=== PATIENT | female | born 1970 | race African-American/Black ===

== ENCOUNTER 2017-03-10 17:59 | Emergency (ER) | payer MEDICAID ==
[~2017-03-10] VITALS: Ht 177.8 cm; Wt 63.5 kg
[~2017-03-10 17:59] MED LIST: BENTYL10 MG ORAL; BUSPAR10 MG ORAL; CIPRO500 MG PO; FAMOTIDINE20 MG ORAL; HYDROXYZINE HCL25 M1 PO; KEFLEX500 MG ORAL; MOTRIN100 MG/51 PO; NKM; NORCO 5-325 TA1 EACH ORAL; OMEPRAZOLE40 M1 ORAL; PROMETHAZINE HC25 M1 ORAL; PROPRANOLOL HCL40 MG ORAL; RANITIDINE HCL150 MG ORAL; REGLAN10 MG ORAL; REGLAN10 MG PO; REMERON30 MG ORAL; SERTRALINE HCL100 MG PO; SUCRALFATE1 GM PO; TYLENOL EXTRA500 MG ORAL; ZEGERID 20 MG1 EAC1 PO; ZOFRAN4 M3 ORAL
[2017-03-10] MEDS ORDERED: Morphine Sulfate 4mg/ml Inj IVP ONE (18:15)
[2017-03-10] MEDS ORDERED: DiphenhydrAMINE 50mg/ml Inj IVP ONE (18:15)
[2017-03-10] MEDS ORDERED: Metoclopramide 10mg/2ml Inj IVP ONE (18:15)
[2017-03-10] MEDS ORDERED: Tubing IV Cassette IV ONE (18:44)
[2017-03-10 19:00] VITALS: BP 134/72
[2017-03-10 19:10] LABS: BASOPHILS % (AUTO) 0.9 % (0.0-2.0); EOSINOPHILS % (AUTO) 0.1 % (0.0-3.0); HEMOGLOBIN 13.4 G/DL (12.0-16.0); LYMPHOCYTES % (AUTO) 26.6 % (20.0-45.0); MEAN CORPUSCULAR VOLUME 92 FL (80-99); MONOCYTES % (AUTO) 3.9 % (1.0-10.0); NEUTROPHILS % (AUTO) 68.6 % (45.0-75.0); PLATELET COUNT 349 K/UL (150-450); RED BLOOD COUNT 4.46 M/UL (4.20-5.40); RED CELL DISTRIBUTION WIDTH 13.3 % (11.6-14.8); WHITE BLOOD COUNT 7.9 K/UL (4.8-10.8)
[2017-03-10 19:24] LABS: ANION GAP 13 mmol/L (5-15); BLOOD UREA NITROGEN 13 mg/dL (7-18); CALCIUM 9.5 MG/DL (8.5-10.1); CARBON DIOXIDE 25 MMOL/L (21-32); CHLORIDE 102 MMOL/L (98-107); POTASSIUM 3.9 MMOL/L (3.5-5.1); SODIUM 140 MMOL/L (136-145)
[2017-03-10 19:25] LABS: INR 0.9 (0.9-1.1)
[2017-03-10 19:28] LABS: ALANINE AMINOTRANSFERASE 12 U/L (12-78); ALBUMIN 3.9 G/DL (3.4-5.0); ALBUMIN/GLOBULIN RATIO 0.9 (1.0-2.7); ALKALINE PHOSPHATASE 86 U/L (46-116); ASPARTATE AMINO TRANSFERASE 17 U/L (15-37); BILIRUBIN,TOTAL 0.5 MG/DL (0.2-1.0)
--- NOTE | 2017-03-10 19:44 | Emergency Room Report ---
History of Present Illness General Chief Complaint: Abdominal Pain Source: Patient, EMS Present Illness HPI The patient presents with vomiting epigastric pain. His begun for 2 days. She' s felt that she has stomach flu. She also has a history of GERD and reflux esophagitis. The pain is severe in her abdomen, burning not radiating. She denies any diarrhea. She feels weak. Paramedics gave her Zofran in the field. Allergies: Coded Allergies: No Known Allergies (Unverified , 05/04/12) Patient History Past Medical History: see triage record Last Menstrual Period: Three weeks ago Now: No Reviewed Nursing Documentation: PMH: Agreed, PSxH: Agreed Nursing Documentation-PMH Hx Gastrointestinal Problems: Yes - GALLSTONES, CHOLECYSTITIS History Of Psychiatric Problem: Yes - Anxiety; Depression Physical Exam Vital Signs Date Time Temp Pulse Resp B/P (MAP) Pulse Ox O2 Delivery O2 Flow Rate FiO2 03/10/17 17:52 99.0 90 18 110/62 98 Room Air Medical Decision Making Diagnostic Impression: Primary Impression: Abdominal pain Additional Impression: Nausea & vomiting Qualified Codes: R11.2 - Nausea with vomiting, unspecified ER Course Patient presents with vomiting and epigastric pain. Differential includes gastritis, peptic ulcer disease, esophagitis amongst others. We to exclude pancreatitis. She is on a surgical abdomen at this time. Evaluation will be with labs. The patient will receive IV hydration, Zofran and morphine along with Pepcid. Labs are unremarkable. The patient is improved Still nauseated. Alejandro PO. Abdomen is soft. Zofran and tramadol ordered. EKG Diagnostic Results Rate: normal Rhythm: NSR ST Segments: no acute changes Rhythm Strip Diag. Results EP Interpretation: yes Rhythm: NSR, no PVC's, no ectopy Status: improved Disposition: HOME, SELF-CARE Condition: Improved Shubham Lucas M.D. Mar 10, 2017 19:44
[2017-03-10] MEDS ORDERED: UNOBMED (20:14)
[2017-03-10 21:00] VITALS: BP 134/89
[2017-03-10] MEDS ORDERED: traMADol 50mg tab ORAL ONE (21:15)
[2017-03-10] MEDS ORDERED: ZOFRAN ODT4 MG ORAL (21:21)
[2017-03-10] MEDS ORDERED: PEPCID20 MG ORAL (21:21)
[2017-03-10] MEDS ORDERED: TRAMADOL HCL50 MG ORAL (21:21)
[2017-03-10 21:47] LABS: APPEARANCE,URINE SLIGHTLY CLOUDY; BILIRUBIN, URINE 1+ (NEGATIVE); COLOR,URINE BROWN; GLUCOSE, URINE (UA) NEGATIVE (NEGATIVE); KETONES,URINE 4+ (NEGATIVE); LEUKOCYTE ESTERASE ,URINE 1+ (NEGATIVE); NITRITE,URINE NEGATIVE (NEGATIVE); PH,URINE 7 (4.5-8.0); PROTEIN,URINE 2+ (NEGATIVE); UROBILINOGEN,URINE 4 MG/DL (0.0-1.0)
[2017-03-10 22:00] VITALS: BP 116/89
--- NOTE | 2017-03-11 03:09 | Emergency Room Report ---
Physical Exam Addendum done because prior note prematurely signed. PMHx: No fevers, cough, chest pain, melena, vomiting blood, sore throat. No SI or HI. Taking psychiatric meds. PSurgHx: burton SocHx: denies alcohol, + smoker, THC - in past amphetamines ROS: neg aside from history (see prior note). Vital Signs Date Time Temp Pulse Resp B/P (MAP) Pulse Ox O2 Delivery O2 Flow Rate FiO2 03/10/17 17:52 99.0 90 18 110/62 98 Room Air Sp02 EP Interpretation: reviewed, normal General Appearance: GCS 15, mild distress, other - diaphoretic and vomiting Head: normocephalic Eyes: bilateral eye PERRL, bilateral eye Scleral Injection ENT: moist mucus membranes Neck: supple Respiratory: lungs clear, normal breath sounds Cardiovascular #1: regular rate, rhythm Cardiovascular #2: 2+ radial (R) Gastrointestinal: normal inspection, soft, no mass, non-distended, no guarding , no rebound, tenderness - epigastric, other - vomit without coffee grounds, decreased bowel sounds Genitourinary: no CVA tenderness Musculoskeletal: back normal, gait/station normal, normal range of motion Neurologic: alert, oriented x3, grossly normal Psychiatric: anxious - and in pain Skin: warm/dry, well hydrated, diaphoresis Medical Decision Making Diagnostic Impression: Primary Impression: Abdominal pain Qualified Codes: R10.13 - Epigastric pain Additional Impression: Nausea & vomiting Qualified Codes: R11.2 - Nausea with vomiting, unspecified ER Course Patient in mild distress with NV and epigastric pain. Ddx: gastritis, PUD, pancreatitis, GItis amongst others. Has presented in past with similar complaint. Evaluation with labs. Not surgical abdomen and x-rays not indicated based on history and exam. Will be treated with hydration, zofran, pepcid and morphine. EKG no injury. Labs significant for normal WBC, lytes and lipase. Improved with treatment. Still with nausea and pain. Zofran and tramadol given. Patient stable for outpatient observation and treatment. Laboratory Tests Test 03/10/17 18:45 03/10/17 21:30 White Blood Count 7.9 K/UL (4.8-10.8) Red Blood Count 4.46 M/UL (4.20-5.40) Hemoglobin 13.4 G/DL (12.0-16.0) Hematocrit 41.0 % (37.0-47.0) Mean Corpuscular Volume 92 FL (80-99) Mean Corpuscular Hemoglobin 30.0 PG (27.0-31.0) Mean Corpuscular Hemoglobin Concent 32.6 G/DL (32.0-36.0) Red Cell Distribution Width 13.3 % (11.6-14.8) Platelet Count 349 K/UL (150-450) Mean Platelet Volume 6.9 FL (6.5-10.1) Neutrophils (%) (Auto) 68.6 % (45.0-75.0) Lymphocytes (%) (Auto) 26.6 % (20.0-45.0) Monocytes (%) (Auto) 3.9 % (1.0-10.0) Eosinophils (%) (Auto) 0.1 % (0.0-3.0) Basophils (%) (Auto) 0.9 % (0.0-2.0) Prothrombin Time 9.6 SEC (9.30-11.50) Prothrombin Time INR 0.9 (0.9-1.1) PTT 26 SEC (23-33) Sodium Level 140 MMOL/L (136-145) Potassium Level 3.9 MMOL/L (3.5-5.1) Chloride Level 102 MMOL/L (98-107) Carbon Dioxide Level 25 MMOL/L (21-32) Anion Gap 13 mmol/L (5-15) Blood Urea Nitrogen 13 mg/dL (7-18) Creatinine 1.0 MG/DL (0.55-1.30) Estimate Glomerular Filtration Rate > 60 mL/min (>60) Glucose Level 136 MG/DL (74-106) H Calcium Level 9.5 MG/DL (8.5-10.1) Total Bilirubin 0.5 MG/DL (0.2-1.0) Aspartate Amino Transferase (AST) 17 U/L (15-37) Alanine Aminotransferase (ALT) 12 U/L (12-78) Alkaline Phosphatase 86 U/L (46-116) Total Protein 8.2 G/DL (6.4-8.2) Albumin 3.9 G/DL (3.4-5.0) Globulin 4.3 g/dL Albumin/Globulin Ratio 0.9 (1.0-2.7) L Lipase 139 U/L (73-393) Urine Color Brown Urine Appearance Slightly cloudy Urine pH 7 (4.5-8.0) Urine Specific [place] 1.015 (1.005-1.035) Urine Protein 2+ (NEGATIVE) H Urine Glucose (UA) Negative (NEGATIVE) Urine Ketones 4+ (NEGATIVE) H Urine Occult Blood 2+ (NEGATIVE) H Urine Nitrite Negative (NEGATIVE) Urine Bilirubin 1+ (NEGATIVE) H Urine Ictotest Negative Urine Urobilinogen 4 MG/DL (0.0-1.0) H Urine Leukocyte Esterase 1+ (NEGATIVE) H Urine RBC 5-10 /HPF (0 - 2) H Urine WBC 0-2 /HPF (0 - 2) Urine Squamous Epithelial Cells Occasional /LPF Urine Bacteria Occasional /HPF (NONE) Urine Hyaline Casts 2-4 /LPF (NONE) H Urine Red Blood Cell Casts 0-2 /LPF (NONE) H Urine Mucus Moderate /LPF (NONE/OCC) H Urine Opiates Screen Positive (NEGATIVE) H Urine Barbiturates Screen Negative (NEGATIVE) Phencyclidine (PCP) Screen Negative (NEGATIVE) Urine Amphetamines Screen Negative (NEGATIVE) Urine Benzodiazepines Screen Negative (NEGATIVE) Urine Cocaine Screen Negative (NEGATIVE) Urine Marijuana (THC) Screen Positive (NEGATIVE) H EKG Diagnostic Results Rate: normal Rhythm: NSR ST Segments: no acute changes Rhythm Strip Diag. Results EP Interpretation: yes Rhythm: NSR, no PVC's, no ectopy Last Vital Signs Date Time Temp Pulse Resp B/P (MAP) Pulse Ox O2 Delivery O2 Flow Rate FiO2 03/10/17 22:00 98.9 68 18 116/89 100 Room Air Status: improved Disposition: HOME, SELF-CARE Condition: Improved Scripts Famotidine (PEPCID) 20 Mg Tablet 20 MG ORAL DAILY, #20 TAB 0 Refills Prov: Shubham Lucas M.D. 03/10/17 Tramadol Hcl* (ULTRAM*) 50 Mg Tablet 50 MG ORAL Q6H Y for For Pain, #14 TAB 0 Refills Prov: Shubham Lucas M.D. 03/10/17 Ondansetron Odt* (ZOFRAN ODT*) 4 Mg Tab.rapdis 4 MG ORAL Q8H Y for Nausea & Vomiting, #8 TAB 1 Refill Prov: Shubham Lucas M.D. 03/10/17 Referrals: [facility] (PCP) Patient Instructions: Nausea and Vomiting, Adult, Abdominal Pain, Adult Additional Instructions: No aspirin, advil, aleve, alkaselzer, peptobismol or alcohol. Tylenol and [place] OK. See your doctors this week. Shubham Lucas M.D. Mar 11, 2017 03:09
--- NOTE | 2017-03-11 12:07 | Diagnostic Imaging Report ---
Indication: Abdominal pain Technique: Supine view of the abdomen Comparison: 06/27/2015 Findings: Unremarkable bowel gas pattern. No unusual masses or calcifications. There are right upper quadrant surgical clips. Impression: No acute process Evidence of prior cholecystectomy
--- NOTE | 2017-03-11 16:07 | Cardiology Report ---
APPROVED REPORT EKG Measurement Heart [id number] Normal sinus rhythm Normal ECG
== END 2017-03-10 22:00 | disposition home or self-care (01) ==
LOC: EDBD 17:59 → EMR 18:40
DX: R10.13 Epigastric pain (principal); R11.2 Nausea with vomiting, unspecified; F41.9 Anxiety disorder, unspecified; F32.9 Major depressive disorder, single episode, unspecified; K21.9 Gastro-esophageal reflux disease without esophagitis
CPT/HCPCS: 36415; 74018; 80053; 80307; 81003; 83690; 85025; 85610; 85730; 93005; 96361; 96374; 96375; 99284; J1200; J2270; J2405; J2765; S0028

== ENCOUNTER 2017-08-27 13:58 | Emergency (ER) | payer MEDICAID ==
[~2017-08-27] VITALS: Ht 175.3 cm; Wt 59.0 kg
[~2017-08-27 13:58] MED LIST changes: +PEPCID20 MG ORAL; +TRAMADOL HCL50 MG ORAL; +UNOBMED; +ZOFRAN ODT4 MG ORAL
[2017-08-27] MEDS ORDERED: Mylanta II UD 30ml ORAL ONE (14:30)
[2017-08-27] MEDS ORDERED: Lidocaine 2% Visc 15ml soln ORAL ONE (14:30)
[2017-08-27] MEDS ORDERED: Dicyclomine HCl 10mg/5ml oral soln ORAL ONE (14:30)
[2017-08-27 14:31] VITALS: BP 125/75
[2017-08-27 14:53] LABS: ANION GAP 13 mmol/L (5-15); BLOOD UREA NITROGEN 25 mg/dL (7-18); CALCIUM 9.5 MG/DL (8.5-10.1); CARBON DIOXIDE 29 MMOL/L (21-32); CHLORIDE 95 MMOL/L (98-107); CREATININE 1.2 MG/DL (0.55-1.30); POTASSIUM 2.9 MMOL/L (3.5-5.1); SODIUM 137 MMOL/L (136-145)
[2017-08-27 14:56] LABS: APPEARANCE,URINE SLIGHTLY CLOUDY; BILIRUBIN, URINE 1+ (NEGATIVE); GLUCOSE, URINE (UA) NEGATIVE (NEGATIVE); KETONES,URINE 1+ (NEGATIVE); LEUKOCYTE ESTERASE ,URINE 1+ (NEGATIVE); NITRITE,URINE NEGATIVE (NEGATIVE); PH,URINE 6 (4.5-8.0); PROTEIN,URINE 4+ (NEGATIVE); UROBILINOGEN,URINE 4 MG/DL (0.0-1.0)
[2017-08-27 14:58] LABS: ALANINE AMINOTRANSFERASE 23 U/L (12-78); ALBUMIN 4.3 G/DL (3.4-5.0); ALKALINE PHOSPHATASE 93 U/L (46-116); ASPARTATE AMINO TRANSFERASE 14 U/L (15-37); BILIRUBIN,TOTAL 0.5 MG/DL (0.2-1.0)
[2017-08-27 14:58] LABS: COLOR,URINE YELLOW
[2017-08-27] MEDS ORDERED: cefTRIAXone 1 GM in NS 55 ML IVPB ONE (15:30)
[2017-08-27] MEDS ORDERED: RANITIDINE HCL150 MG ORAL (15:33)
[2017-08-27] MEDS ORDERED: ONDANSETRON ODT4 MG BC (15:33)
[2017-08-27 15:49] VITALS: BP 127/73
[2017-08-27 15:50] VITALS: BP 125/75
--- NOTE | 2017-08-27 15:58 | Emergency Room Report ---
History of Present Illness General Chief Complaint: Abdominal Pain Source: Patient Present Illness HPI 46-year-old female presents ED complaining of abdominal pain. Brought in by EMS. Started this morning. History of GERD. History of cholecystectomy. Pain is epigastric, burning, 8 out of 10, nonradiating. Denies chest pain or shortness of breath. Denies flank pain. Denies fevers or chills. No other aggravating relieving factors. Denies any other associated symptoms Allergies: Coded Allergies: No Known Allergies (Unverified , 05/04/12) Patient History Past Medical History: none Past Surgical History: burton Pertinent Family History: none Social History: Denies: smoking, alcohol use, drug use Now: No Immunizations: UTD Reviewed Nursing Documentation: PMH: Agreed; PSxH: Agreed Nursing Documentation-PMH Past Medical History: No History, Except For Hx Cardiac Problems: No - GERD Hx Gastrointestinal Problems: Yes - GALLSTONES, CHOLECYSTITIS Review of Systems All Other Systems: negative except mentioned in HPI Physical Exam Vital Signs Date Time Temp Pulse Resp B/P (MAP) Pulse Ox O2 Delivery O2 Flow Rate FiO2 08/27/17 13:47 98.2 110 18 125/75 100 Room Air 98.2 Sp02 EP Interpretation: reviewed, normal General Appearance: no apparent distress, alert, GCS 15, non-toxic Head: normocephalic, atraumatic Eyes: bilateral eye normal inspection, bilateral eye PERRL ENT: hearing grossly normal, normal pharynx, no angioedema, normal voice Neck: full range of motion, supple/symm/no masses Respiratory: chest non-tender, lungs clear, normal breath sounds, speaking full sentences Cardiovascular #1: regular rate, rhythm, no edema Cardiovascular #2: 2+ carotid (R), 2+ carotid (L), 2+ radial (R), 2+ radial (L) , 2+ dorsalis pedis (R), 2+ dorsalis pedis (L) Gastrointestinal: normal bowel sounds, soft, non-distended, no guarding, no rebound, tenderness - epigastric Rectal: deferred Genitourinary: normal inspection, no CVA tenderness Musculoskeletal: back normal, gait/station normal, normal range of motion, non- tender Neurologic: alert, oriented x3, responsive, motor strength/tone normal, sensory intact, speech normal Psychiatric: judgement/insight normal, memory normal, mood/affect normal, no suicidal/homicidal ideation Reflexes: 3+ bicep (R), 3+ bicep (L), 3+ tricep (R), 3+ tricep (L), 3+ knee (R) , 3+ knee (L) Skin: normal color, no rash, warm/dry, well hydrated Lymphatic: no adenopathy Medical Decision Making Diagnostic Impression: Primary Impression: Gastritis Qualified Codes: K29.00 - Acute gastritis without bleeding Additional Impression: Marijuana abuse ER Course Hospital Course 46-year-old F presents to ED with epigastric pain with N/V. differential diagnosis: gastritis, SBO, cholecystits Clinical course Patient placed on stretcher. On monitoring coordinator. After initial history and physical I ordered labs, IV fluids, Zofran, gi cocktail and pepcid Labs - K 2.9 remainder of electrolytes ok , LFTs normal Upon reassessment, patient states pain has improved. findings consistent with gastritis K repleted. Abdomen soft. I reviewed EMR. She has been here multiple times for similar episodes of gastritis. I feel this is a highly complex case requiring extensive working including EKG/ Rhythm strip, Xray/CT/US, Blood/urine lab work, repeat exams while in ED, and administration of strong opiates/narcotics for pain control, admission to hospital or close patient follow up. Diagnosis - gastritis, marijuana abuse Stable and discharged to home with prescriptions for Zantac, zofran. Followup with PMD. Return to ED if symptoms recur or worsen Labs Test 08/27/17 14:15 08/27/17 14:25 Sodium Level 137 MMOL/L (136-145) Potassium Level 2.9 MMOL/L (3.5-5.1) Chloride Level 95 MMOL/L (98-107) Carbon Dioxide Level 29 MMOL/L (21-32) Anion Gap 13 mmol/L (5-15) Blood Urea Nitrogen 25 mg/dL (7-18) Creatinine 1.2 MG/DL (0.55-1.30) Estimat Glomerular Filtration Rate 58.1 mL/min (>60) Glucose Level 107 MG/DL (74-106) Calcium Level 9.5 MG/DL (8.5-10.1) Total Bilirubin 0.5 MG/DL (0.2-1.0) Aspartate Amino Transf (AST/SGOT) 14 U/L (15-37) Alanine Aminotransferase (ALT/SGPT) 23 U/L (12-78) Alkaline Phosphatase 93 U/L (46-116) Total Protein 8.7 G/DL (6.4-8.2) Albumin 4.3 G/DL (3.4-5.0) Globulin 4.4 g/dL Albumin/Globulin Ratio 1.0 (1.0-2.7) Lipase 159 U/L (73-393) Urine Color Yellow Urine Appearance Slightly cloudy Urine pH 6 (4.5-8.0) Urine Specific [place] 1.020 (1.005-1.035) Urine Protein 4+ (NEGATIVE) Urine Glucose (UA) Negative (NEGATIVE) Urine Ketones 1+ (NEGATIVE) Urine Occult Blood 4+ (NEGATIVE) Urine Nitrite Negative (NEGATIVE) Urine Bilirubin 1+ (NEGATIVE) Urine Ictotest Negative Urine Urobilinogen 4 MG/DL (0.0-1.0) Urine Leukocyte Esterase 1+ (NEGATIVE) Urine RBC 5-10 /HPF (0 - 2) Urine WBC 2-4 /HPF (0 - 2) Urine Squamous Epithelial Cells Few /LPF (NONE/OCC) Urine Bacteria Few /HPF (NONE) Urine Yeast Few /HPF (NONE) Urine Opiates Screen Negative (NEGATIVE) Urine Barbiturates Screen Negative (NEGATIVE) Phencyclidine (PCP) Screen Negative (NEGATIVE) Urine Amphetamines Screen Negative (NEGATIVE) Urine Benzodiazepines Screen Negative (NEGATIVE) Urine Cocaine Screen Negative (NEGATIVE) Urine Marijuana (THC) Screen Positive (NEGATIVE) Last Vital Signs Date Time Temp Pulse Resp B/P (MAP) Pulse Ox O2 Delivery O2 Flow Rate FiO2 08/27/17 15:50 98.2 74 18 125/75 100 Room Air 98.2 Status: improved Disposition: HOME, SELF-CARE Condition: Stable Scripts Ranitidine Hcl* (ZANTAC*) 150 Mg Tablet 150 MG ORAL TWICE A DAY, #30 TAB Prov: Calvin Hernandez MD 08/27/17 Ondansetron Odt* (ZOFRAN ODT*) 4 Mg Tab.rapdis 4 MG BC EVERY 8 HOURS, #30 TAB 0 Refills Prov: Calvin Hernandez MD 08/27/17 Patient Instructions: Gastritis, Adult, [id number] Calvin Hernandez MD Aug 27, 2017 15:58
== END 2017-08-27 16:30 | disposition home or self-care (01) ==
LOC: EDBD 13:58 → EMR 14:35
DX: K29.70 Gastritis, unspecified, without bleeding (principal); F12.10 Cannabis abuse, uncomplicated; K21.9 Gastro-esophageal reflux disease without esophagitis
CPT/HCPCS: 36415; 80053; 80307; 81003; 83690; 87086; 87181; 96361; 96374; 96375; 99284; J2405; S0028; 96360; J8499

== ENCOUNTER 2017-12-22 08:51 | Emergency (ER) | payer MEDICAID ==
[~2017-12-22] VITALS: Ht 177.8 cm; Wt 54.9 kg
[~2017-12-22 08:51] MED LIST changes: +ONDANSETRON ODT4 MG BC
[2017-12-22 08:52] VITALS: BP 140/88
[2017-12-22] MEDS ORDERED: Sodium Chloride 500ML 500 ML IV ONE (09:16)
--- NOTE | 2017-12-22 09:22 | Emergency Room Report ---
History of Present Illness General Chief Complaint: Abdominal Pain Source: Patient, Medical Record Present Illness HPI Patient presents with complaints of epigastric abdominal pain Reports that she smoked cigarettes earlier feels that this might have irritated her stomach Has increased vomiting denies any diarrhea denies any lower abdominal pain Denies any chest pain or short of breath Patient presents somewhat histrionic in acute distress upon arrival by paramedics Denies any trauma Allergies: Coded Allergies: No Known Allergies (Unverified , 05/04/12) Patient History Past Medical History: see triage record Pertinent Family History: none Reviewed Nursing Documentation: PMH: Agreed; PSxH: Agreed Nursing Documentation-PMH Past Medical History: No History, Except For Hx Cardiac Problems: No - GERD Review of Systems All Other Systems: negative except mentioned in HPI Physical Exam Vital Signs Date Time Temp Pulse Resp B/P (MAP) Pulse Ox O2 Delivery O2 Flow Rate FiO2 12/22/17 08:37 98.4 80 16 122/88 98 Room Air 98.4 Sp02 EP Interpretation: reviewed, normal General Appearance: mild distress - In pain Head: normocephalic, atraumatic Eyes: bilateral eye PERRL, bilateral eye EOMI ENT: hearing grossly normal, normal pharynx, TMs + canals normal, uvula midline Neck: full range of motion, supple, no meningismus, no bony tend Respiratory: lungs clear, normal breath sounds, no rhonchi, no respiratory distress, no retraction, no accessory muscle use Cardiovascular #1: normal peripheral pulses, regular rate, rhythm, no edema, no gallop, no JVD, no murmur Gastrointestinal: normal bowel sounds, non tender - On palpation, however subjectively points to epigastric area, soft, no mass, no organomegaly, non- distended, no guarding, no hernia, no pulsatile mass, no rebound Genitourinary: no CVA tenderness Musculoskeletal: normal inspection Neurologic: oriented x3, responsive, registered physical therapist III-XII nml as tested, motor strength/ tone normal, sensory intact Psychiatric: mood/affect normal Skin: normal color, no rash, warm/dry, palpation normal Lymphatic: normal inspection, no adenopathy Medical Decision Making Diagnostic Impression: Primary Impression: Abdominal pain ER Course With the patient's history and examination, multiple differentials considered, including but not limited to , ectopic , ovarian torsion, gastritis, cholecystitis, pancreatitis, appendicitis Patient's pain has significantly improved after acute intervention Repeat abdominal exam is soft and benign I did not feel the patient required emergency imaging given the examination And patient will have initial conservative outpatient trial Labs Test 12/22/17 09:00 12/22/17 09:54 White Blood Count 12.8 K/UL (4.8-10.8) Red Blood Count 5.89 M/UL (4.20-5.40) Hemoglobin 16.6 G/DL (12.0-16.0) Hematocrit 50.5 % (37.0-47.0) Mean Corpuscular Volume 86 FL (80-99) Mean Corpuscular Hemoglobin 28.1 PG (27.0-31.0) Mean Corpuscular Hemoglobin Concent 32.8 G/DL (32.0-36.0) Red Cell Distribution Width 12.6 % (11.6-14.8) Platelet Count 462 K/UL (150-450) Mean Platelet Volume 6.3 FL (6.5-10.1) Neutrophils (%) (Auto) 69.9 % (45.0-75.0) Lymphocytes (%) (Auto) 25.4 % (20.0-45.0) Monocytes (%) (Auto) 3.6 % (1.0-10.0) Eosinophils (%) (Auto) 0.0 % (0.0-3.0) Basophils (%) (Auto) 1.1 % (0.0-2.0) Sodium Level 131 MMOL/L (136-145) Potassium Level 4.2 MMOL/L (3.5-5.1) Chloride Level 96 MMOL/L (98-107) Carbon Dioxide Level 24 MMOL/L (21-32) Anion Gap 11 mmol/L (5-15) Blood Urea Nitrogen 24 mg/dL (7-18) Creatinine 1.3 MG/DL (0.55-1.30) Estimat Glomerular Filtration Rate 53.0 mL/min (>60) Glucose Level 97 MG/DL (74-106) Calcium Level 10.0 MG/DL (8.5-10.1) Total Bilirubin 0.7 MG/DL (0.2-1.0) Aspartate Amino Transf (AST/SGOT) 18 U/L (15-37) Alanine Aminotransferase (ALT/SGPT) 23 U/L (12-78) Alkaline Phosphatase 116 U/L (46-116) Total Protein 8.9 G/DL (6.4-8.2) Albumin 4.3 G/DL (3.4-5.0) Globulin 4.6 g/dL Albumin/Globulin Ratio 0.9 (1.0-2.7) Lipase 206 U/L (73-393) Urine Opiates Screen Positive (NEGATIVE) Urine Barbiturates Screen Negative (NEGATIVE) Phencyclidine (PCP) Screen Negative (NEGATIVE) Urine Amphetamines Screen Negative (NEGATIVE) Urine Benzodiazepines Screen Negative (NEGATIVE) Urine Cocaine Screen Negative (NEGATIVE) Urine Marijuana (THC) Screen Positive (NEGATIVE) Last Vital Signs Date Time Temp Pulse Resp B/P (MAP) Pulse Ox O2 Delivery O2 Flow Rate FiO2 12/22/17 08:52 98.4 77 15 140/88 98 Room Air 98.4 Status: improved Disposition: HOME, SELF-CARE Condition: Improved Scripts Famotidine (PEPCID AC) 20 Mg Tablet 20 MG PO DAILY, #12 TAB Prov: Brenton Ochoa DO 12/22/17 Acetaminophen With Codeine (T#3) (TYLENOL #3 TAB*) Y Tab 1 TAB ORAL Q8H PRN for For Pain, #10 TAB Prov: Brenton Ochoa DO 12/22/17 Referrals: [facility] (PCP) Additional Instructions: Patient is provided with the discharge instructions notified to follow up with primary doctor in the next 2-3 days otherwise return to the er with any worsening symptoms. Please note that this report is being documented using [employer] technology. This can lead to erroneous entry secondary to incorrect interpretation by the dictating instrument. Brenton Ochoa DO Dec 22, 2017 09:22
[2017-12-22 09:30] LABS: BASOPHILS % (AUTO) 1.1 % (0.0-2.0); HEMATOCRIT 50.5 % (37.0-47.0); HEMOGLOBIN 16.6 G/DL (12.0-16.0); LYMPHOCYTES % (AUTO) 25.4 % (20.0-45.0); MEAN CORPUSCULAR VOLUME 86 FL (80-99); MONOCYTES % (AUTO) 3.6 % (1.0-10.0); NEUTROPHILS % (AUTO) 69.9 % (45.0-75.0); PLATELET COUNT 462 K/UL (150-450); RED BLOOD COUNT 5.89 M/UL (4.20-5.40); RED CELL DISTRIBUTION WIDTH 12.6 % (11.6-14.8); WHITE BLOOD COUNT 12.8 K/UL (4.8-10.8)
[2017-12-22] MEDS ORDERED: Morphine Sulfate 4mg/ml Inj (IV/IM USE ONLY) IVP ONE (09:30)
[2017-12-22] MEDS ORDERED: DiphenhydrAMINE 50mg/ml Inj IVP ONE (09:30)
[2017-12-22] MEDS ORDERED: LORazepam Inj 2mg/ml 1ml IV ONE (09:30)
[2017-12-22] MEDS ORDERED: Metoclopramide 10mg/2ml Inj IVP ONE (09:30)
[2017-12-22 09:32] LABS: ANION GAP 11 mmol/L (5-15); BLOOD UREA NITROGEN 24 mg/dL (7-18); CARBON DIOXIDE 24 MMOL/L (21-32); CHLORIDE 96 MMOL/L (98-107); CREATININE 1.3 MG/DL (0.55-1.30); POTASSIUM 4.2 MMOL/L (3.5-5.1); SODIUM 131 MMOL/L (136-145)
[2017-12-22 09:37] LABS: ALANINE AMINOTRANSFERASE 23 U/L (12-78); ALBUMIN 4.3 G/DL (3.4-5.0); ALBUMIN/GLOBULIN RATIO 0.9 (1.0-2.7); ALKALINE PHOSPHATASE 116 U/L (46-116); ASPARTATE AMINO TRANSFERASE 18 U/L (15-37); BILIRUBIN,TOTAL 0.7 MG/DL (0.2-1.0)
[2017-12-22 11:02] VITALS: BP 127/84
[2017-12-22 13:11] VITALS: BP 101/64
[2017-12-22] MEDS ORDERED: ACETAMINOPHEN-1 EAC1 ORAL (13:22)
[2017-12-22] MEDS ORDERED: PEPCID AC20 M2 PO (13:22)
[2017-12-22 13:34] VITALS: BP 101/64
== END 2017-12-22 13:34 | disposition home or self-care (01) ==
LOC: EDBD 08:51 → EMR 09:05
DX: R10.13 Epigastric pain (principal); K21.9 Gastro-esophageal reflux disease without esophagitis
CPT/HCPCS: 36415; 80053; 80307; 83690; 85025; 96374; 96375; 99284; J1200; J2270; J2765; J7040